=== PATIENT | female | born 1960 | race Caucasian/White ===

== ENCOUNTER 2017-04-15 15:50 | Inpatient (IN) | payer OTHER ==
[~2017-04-15] VITALS: Ht 152.4 cm; Wt 65.3 kg
[~2017-04-15 15:50] MED LIST: ADVAIR 250/501 EA INH; ALEVE220 MG PO; CIPRO500 MG PO; DOXYCYCLINE MO100 MG PO; KEFLEX500 MG PO; METICORTEN1 MG PO; ROBITUSSIN AC 110 ML PO; SINGULAIR10 MG PO; ZITHROMAX250 MG
[2017-04-15 16:38] VITALS: BP 158/86
[2017-04-15 17:17] LABS: BASO # 0.1 10*3/uL (0.0-0.1); BASO % 0.3 % (0.0-1.0); EOS # 0.4 10*3/uL (0.0-0.4); EOS % 2.3 % (1.0-4.0); HEMATOCRIT 40.3 % (37.0-47.0); HEMOGLOBIN 13.1 g/dl (12.0-16.0); LYMPH # 2.1 10*3/uL (1.3-4.4); LYMPH % 12.8 % (27.0-41.0); MEAN CELL VOLUME 99.3 fl (81.0-99.0); MEAN CORPUSCULAR HGB 32.3 pg (27.0-31.0); MEAN CORPUSCULAR HGB CONC 32.5 g/dl (33.0-37.0); MEAN PLATELET VOLUME 10.4 fl (9.6-12.3); MONO % 6.4 % (3.0-9.0); NEUT # 12.6 10*3/uL (2.3-7.9); NEUT % 77.8 % (47.0-73.0); PLATELET COUNT AUTOMATED 340 10*3/uL (130-400); RED BLOOD COUNT 4.06 10*6/uL (4.10-5.10); RED CELL DISTRI WIDTH 13.1 % (0-14.5); WHITE BLOOD COUNT 16.2 10*3/uL (4.8-10.8)
[2017-04-15 17:31] LABS: ALBUMIN 3.3 gm/dl (3.1-4.5); ALKALINE PHOSPHATASE 151 U/L (45-117); BUN 9 mg/dl (7-24); CHLORIDE 96 mmol/L (98-107); CREATININE 0.58 mg/dL (0.55-1.02); POTASSIUM 4.4 mmol/L (3.5-5.1); SGOT/AST 14 IU/L (3-35); SGPT/ALT 25 U/L (12-78); SODIUM 136 mmol/L (136-145); TOTAL PROTEIN 8.2 gm/dL (6.4-8.2)
[2017-04-15 17:38] VITALS: BP 108/58
[2017-04-15 18:30] VITALS: BP 112/57
[2017-04-15] MEDS ORDERED: PROAIR HFA8.5 GM INH (18:56)
[2017-04-15] MEDS ORDERED: Ventolin 02.5 MG/3 M INH (18:56)
[2017-04-15 20:00] VITALS: BP 111/49
[2017-04-16] VITALS: BP 125/64
[2017-04-16 07:04] LABS: BASO % 0.1 % (0.0-1.0); HEMATOCRIT 35.2 % (37.0-47.0); HEMOGLOBIN 11.3 g/dl (12.0-16.0); LYMPH # 0.9 10*3/uL (1.3-4.4); LYMPH % 7.6 % (27.0-41.0); MEAN CELL VOLUME 99.4 fl (81.0-99.0); MEAN CORPUSCULAR HGB 31.9 pg (27.0-31.0); MEAN CORPUSCULAR HGB CONC 32.1 g/dl (33.0-37.0); MEAN PLATELET VOLUME 10.5 fl (9.6-12.3); MONO # 0.2 10*3/uL (0.1-1.0); MONO % 1.6 % (3.0-9.0); NEUT # 10.3 10*3/uL (2.3-7.9); PLATELET COUNT AUTOMATED 298 10*3/uL (130-400); RED BLOOD COUNT 3.54 10*6/uL (4.10-5.10); RED CELL DISTRI WIDTH 13.1 % (0-14.5); WHITE BLOOD COUNT 11.4 10*3/uL (4.8-10.8)
[2017-04-16 07:33] LABS: ALBUMIN 2.6 gm/dl (3.1-4.5); ALKALINE PHOSPHATASE 121 U/L (45-117); BUN 10 mg/dl (7-24); CHLORIDE 101 mmol/L (98-107); CHOLESTEROL 119 mg/dL (<200); CREATININE 0.48 mg/dL (0.55-1.02); FREE T4 1.36 ng/dl (0.76-1.46); HDL CHOLESTEROL 49 mg/dl (40-60); LDL CHOLESTEROL 61 mg/dL (9-159); PHOSPHOROUS 3.1 mg/dL (2.5-4.9); POTASSIUM 4.4 mmol/L (3.5-5.1); SGOT/AST 9 IU/L (3-35); SGPT/ALT 19 U/L (12-78); SODIUM 138 mmol/L (136-145); TOTAL PROTEIN 6.9 gm/dL (6.4-8.2); TRIGLYCERIDES 43 mg/dl (<150); VLDL CHOLESTEROL 9 mg/dL (6-40)
[2017-04-16 08:00] VITALS: BP 97/52
[2017-04-16 08:37] LABS: VITAMIN D, 25-HYDROXY 96.2 ng/mL (30-100)
[2017-04-16 12:00] VITALS: BP 105/49
[2017-04-16 16:00] VITALS: BP 111/60
[2017-04-16 20:00] VITALS: BP 109/51
[2017-04-17] VITALS: BP 117/60
[2017-04-17 07:30] LABS: BASO % 0.1 % (0.0-1.0); HEMATOCRIT 37.1 % (37.0-47.0); HEMOGLOBIN 11.8 g/dl (12.0-16.0); LYMPH # 1.1 10*3/uL (1.3-4.4); MEAN CELL VOLUME 103.3 fl (81.0-99.0); MEAN CORPUSCULAR HGB 32.9 pg (27.0-31.0); MEAN CORPUSCULAR HGB CONC 31.8 g/dl (33.0-37.0); MEAN PLATELET VOLUME 10.4 fl (9.6-12.3); MONO # 0.7 10*3/uL (0.1-1.0); MONO % 4.4 % (3.0-9.0); NEUT % 87.7 % (47.0-73.0); PLATELET COUNT AUTOMATED 320 10*3/uL (130-400); RED BLOOD COUNT 3.59 10*6/uL (4.10-5.10); RED CELL DISTRI WIDTH 13.3 % (0-14.5)
[2017-04-17 07:32] LABS: BUN 15 mg/dl (7-24); CHLORIDE 102 mmol/L (98-107); CREATININE 0.52 mg/dL (0.55-1.02); POTASSIUM 4.3 mmol/L (3.5-5.1); SODIUM 140 mmol/L (136-145)
[2017-04-17 08:00] VITALS: BP 109/52
[2017-04-17 16:00] VITALS: BP 123/88
[2017-04-17 20:00] VITALS: BP 101/56
[2017-04-18] VITALS: BP 113/59
[2017-04-18 07:43] LABS: BASO % 0.1 % (0.0-1.0); HEMATOCRIT 36.2 % (37.0-47.0); HEMOGLOBIN 11.2 g/dl (12.0-16.0); LYMPH % 7.5 % (27.0-41.0); MEAN CELL VOLUME 101.7 fl (81.0-99.0); MEAN CORPUSCULAR HGB 31.5 pg (27.0-31.0); MEAN CORPUSCULAR HGB CONC 30.9 g/dl (33.0-37.0); MEAN PLATELET VOLUME 10.3 fl (9.6-12.3); MONO # 0.7 10*3/uL (0.1-1.0); MONO % 4.8 % (3.0-9.0); NEUT # 11.8 10*3/uL (2.3-7.9); NEUT % 86.8 % (47.0-73.0); PLATELET COUNT AUTOMATED 300 10*3/uL (130-400); RED BLOOD COUNT 3.56 10*6/uL (4.10-5.10); RED CELL DISTRI WIDTH 13.2 % (0-14.5); WHITE BLOOD COUNT 13.6 10*3/uL (4.8-10.8)
[2017-04-18 08:08] VITALS: BP 126/76
[2017-04-18 08:08] LABS: BUN 14 mg/dl (7-24); CHLORIDE 99 mmol/L (98-107); CREATININE 0.51 mg/dL (0.55-1.02); POTASSIUM 4.1 mmol/L (3.5-5.1); SODIUM 139 mmol/L (136-145)
[2017-04-18] MEDS ORDERED: LEVAQUIN750 M1 PO (10:11)
[2017-04-18] MEDS ORDERED: PREDNISONE10 MG PO (10:11)
== END 2017-04-18 11:05 | disposition home or self-care (01) | DRG 871 ==
LOC: ED 15:50 → EDHOLD 17:46 → 4E 17:46
PROVIDERS: Family Medicine; Nurse Practitioner Family; Student in an Organized Health Care Education/Training Program
DX: A41.9 Sepsis, unspecified organism (principal); J18.1 Lobar pneumonia, unspecified organism; E43 Unspecified severe protein-calorie malnutrition; J44.0 Chronic obstructive pulmonary disease with (acute) lower respiratory infection; E87.8 Other disorders of electrolyte and fluid balance, not elsewhere classified; D75.89 Other specified diseases of blood and blood-forming organs; Z87.891 Personal history of nicotine dependence; Z82.49 Family history of ischemic heart disease and other diseases of the circulatory system; Z88.0 Allergy status to penicillin; Z79.899 Other long term (current) drug therapy; Z68.28 Body mass index [BMI] 28.0-28.9, adult

== ENCOUNTER 2021-07-23 14:09 | Inpatient (IN) | payer OTHER ==
[~2021-07-23] VITALS: Ht 152.4 cm; Wt 45.0 kg
[~2021-07-23 14:09] MED LIST changes: +CEPHALEXIN500 M1 PO; +KENALOG 0.5% CR15 GM T; +LEVAQUIN750 M1 PO; +PREDNISONE10 MG PO; +PROAIR HFA8.5 GM INH; +SEPTDS PO; +Ventolin 02.5 MG/3 M INH
[2021-07-23 14:15] VITALS: BP 134/70
[2021-07-23 14:40] LABS: HEMATOCRIT 39.2 % (37.0-47.0); MEAN CELL VOLUME 93.6 fl (81.0-99.0); MEAN CORPUSCULAR HGB CONC 34.2 g/dl (33.0-37.0); MEAN PLATELET VOLUME 10.6 fl (9.6-12.3); PLATELET COUNT AUTOMATED 406 10*3/uL (130-400); RED BLOOD COUNT 4.19 10*6/uL (4.10-5.10); RED CELL DISTRI WIDTH 14.2 % (0-14.5); WHITE BLOOD COUNT 27.4 10*3/uL (4.8-10.8)
[2021-07-23 14:42] LABS: MANUAL DIFF REFLEX YES
[2021-07-23 14:51] LABS: ACT PARTIAL THROMBO TIME 33.9 SECONDS (20.0-32.1); INTERNATIONAL NORM RATIO 1.1 (2.0-3.5)
[2021-07-23 14:59] LABS: ALKALINE PHOSPHATASE 198 U/L (45-117); BUN 23 mg/dl (7-24); CHLORIDE 97 mmol/L (98-107); CREATININE 0.95 mg/dL (0.55-1.02); LIPASE 33 U/L (73-393); POTASSIUM 4.6 mmol/L (3.5-5.1); SGOT/AST 14 IU/L (3-35); SGPT/ALT 18 U/L (12-78); SODIUM 130 mmol/L (136-145)
[2021-07-23 15:04] LABS: ATYPICAL LYMPHS 2 % (0-0); PLATELET SUFFICIENCY HIGH (NORMAL); TOTAL CELLS COUNTED 100 #CELLS
[2021-07-23 16:32] VITALS: BP 104/62
[2021-07-23 16:33] LABS: ABG BASE EXCESS -1.3 mmol/L (-2.0-2.0); ARTERIAL BLOOD GAS PH 7.276 (7.35-7.45)
[2021-07-23 17:05] VITALS: BP 101/56
[2021-07-23 17:25] VITALS: BP 96/40
[2021-07-23] MEDS ORDERED: SPIRIVA RESPIMAT4 GM INH (18:56)
[2021-07-23] MEDS ORDERED: MONTELUKAST SOD10 MG PO (18:56)
[2021-07-23] MEDS ORDERED: ALLERGY RELIEF1 EAC3 PO (19:03)
[2021-07-23 20:00] VITALS: BP 96/50
[2021-07-23 21:46] LABS: ARTERIAL BLOOD GAS PH 7.235 (7.35-7.45)
[2021-07-24] VITALS: BP 97/57
[2021-07-24 04:00] VITALS: BP 99/66
[2021-07-24 05:38] LABS: BUN 23 mg/dl (7-24); CHLORIDE 103 mmol/L (98-107); CREATININE 0.62 mg/dL (0.55-1.02); POTASSIUM 4.3 mmol/L (3.5-5.1); SGOT/AST 12 IU/L (3-35); SGPT/ALT 15 U/L (12-78); SODIUM 133 mmol/L (136-145); TOTAL PROTEIN 6.7 gm/dL (6.4-8.2)
[2021-07-24 05:39] LABS: ALKALINE PHOSPHATASE 168 U/L (45-117)
[2021-07-24 07:39] LABS: HEMATOCRIT 35.7 % (37.0-47.0); MEAN CORPUSCULAR HGB 32.3 pg (27.0-31.0); MEAN CORPUSCULAR HGB CONC 32.8 g/dl (33.0-37.0); MEAN PLATELET VOLUME 11.2 fl (9.6-12.3); NUCLEATED RED BLOOD CELL 0.1 % (0.0-0.0); PLATELET COUNT AUTOMATED 320 10*3/uL (130-400); RED BLOOD COUNT 3.62 10*6/uL (4.10-5.10); RED CELL DISTRI WIDTH 14.8 % (0-14.5)
[2021-07-24 07:53] LABS: MANUAL DIFF REFLEX YES; MEAN CELL VOLUME 98.6 fl (81.0-99.0)
[2021-07-24 08:00] VITALS: BP 131/44
[2021-07-24 08:08] LABS: ATYPICAL LYMPHS 1 % (0-0); BURR CELLS FEW; PLATELET SUFFICIENCY NORMAL (NORMAL); TOTAL CELLS COUNTED 100 #CELLS; TOXIC GRANULATION MODERATE
[2021-07-24 08:09] LABS: POLYCHROMASIA SLIGHT; TARGET CELLS FEW
[2021-07-24 09:30] LABS: ABG BASE EXCESS -2.4 mmol/L (-2.0-2.0); ARTERIAL BLOOD GAS PH 7.26 (7.35-7.45); ARTERIAL BLOOD GAS PO2 91.1 (80-90)
[2021-07-24 12:00] VITALS: BP 109/58
[2021-07-24 16:00] VITALS: BP 120/55
[2021-07-24 20:00] VITALS: BP 103/44
[2021-07-25] VITALS: BP 106/79
[2021-07-25 05:55] LABS: BUN 21 mg/dl (7-24); CHLORIDE 105 mmol/L (98-107); CREATININE 0.63 mg/dL (0.55-1.02); POTASSIUM 4.8 mmol/L (3.5-5.1); SODIUM 136 mmol/L (136-145)
[2021-07-25 05:58] LABS: HEMATOCRIT 34.9 % (37.0-47.0); MEAN CELL VOLUME 98.6 fl (81.0-99.0); MEAN CORPUSCULAR HGB 31.4 pg (27.0-31.0); MEAN CORPUSCULAR HGB CONC 31.8 g/dl (33.0-37.0); MEAN PLATELET VOLUME 10.6 fl (9.6-12.3); PLATELET COUNT AUTOMATED 335 10*3/uL (130-400); RED BLOOD COUNT 3.54 10*6/uL (4.10-5.10); RED CELL DISTRI WIDTH 15.1 % (0-14.5); WHITE BLOOD COUNT 14.3 10*3/uL (4.8-10.8)
[2021-07-25 06:14] LABS: MANUAL DIFF REFLEX YES
[2021-07-25 08:00] VITALS: BP 116/55
[2021-07-25 08:04] LABS: PLATELET SUFFICIENCY NORMAL (NORMAL); TOTAL CELLS COUNTED 100 #CELLS
[2021-07-25 08:08] LABS: IMMUNOGLOBULIN M, QNT 51 mg/dL (26-217); RHEUMATOID FACTOR 27.5 IU/mL (<14.0)
[2021-07-25 09:17] LABS: ABG BASE EXCESS 3.5 mmol/L (-2.0-2.0); ARTERIAL BLOOD GAS PH 7.296 (7.35-7.45); ARTERIAL BLOOD GAS PO2 87.8 (80-90)
[2021-07-25 12:00] VITALS: BP 120/52
[2021-07-25 14:09] LABS: ALDOLASE 9.5 U/L (3.3-10.3); ANGIOTENSIN-CONVERTING ENZYME 33 U/L (14-82)
[2021-07-25 16:00] VITALS: BP 119/60
[2021-07-25 16:08] LABS: ATYPICAL PANCA <1:20 titer (Neg:<1:20); CYTOPLASMIC (C-ANCA) <1:20 titer (Neg:<1:20)
[2021-07-25 20:00] VITALS: BP 105/45
[2021-07-26] VITALS: BP 120/58
[2021-07-26 00:06] LABS: IGG SUBCLASS 1 467 mg/dL (248-810); IGG SUBCLASS 2 263 mg/dL (130-555); IGG SUBCLASS 3 41 mg/dL (15-102); IGG SUBCLASS 4 26 mg/dL (2-96); IMMUNOGLOBULIN G, QNT 931 mg/dL (586-1602)
[2021-07-26 06:03] LABS: BASO % 0.1 % (0.0-1.0); HEMATOCRIT 33.2 % (37.0-47.0); LYMPH # 0.9 10*3/uL (1.3-4.4); LYMPH % 8.7 % (27.0-41.0); MEAN CELL VOLUME 99.1 fl (81.0-99.0); MEAN CORPUSCULAR HGB 31.6 pg (27.0-31.0); MEAN CORPUSCULAR HGB CONC 31.9 g/dl (33.0-37.0); MONO # 0.3 10*3/uL (0.1-1.0); MONO % 2.8 % (3.0-9.0); NEUT % 87.8 % (47.0-73.0); PLATELET COUNT AUTOMATED 266 10*3/uL (130-400); RED BLOOD COUNT 3.35 10*6/uL (4.10-5.10); RED CELL DISTRI WIDTH 15.5 % (0-14.5); WHITE BLOOD COUNT 10.2 10*3/uL (4.8-10.8)
[2021-07-26 06:46] LABS: BUN 23 mg/dl (7-24); CHLORIDE 102 mmol/L (98-107); CREATININE 0.59 mg/dL (0.55-1.02); POTASSIUM 4.6 mmol/L (3.5-5.1); SODIUM 137 mmol/L (136-145)
[2021-07-26 08:00] VITALS: BP 127/67
[2021-07-26 12:00] VITALS: BP 133/74
[2021-07-26 16:00] VITALS: BP 113/52
[2021-07-26 20:00] VITALS: BP 103/53
[2021-07-27] VITALS: BP 109/74
[2021-07-27 06:21] LABS: BASO % 0.1 % (0.0-1.0); HEMATOCRIT 32.4 % (37.0-47.0); LYMPH # 0.7 10*3/uL (1.3-4.4); LYMPH % 7.2 % (27.0-41.0); MEAN CELL VOLUME 97.9 fl (81.0-99.0); MEAN CORPUSCULAR HGB 32.3 pg (27.0-31.0); MEAN PLATELET VOLUME 10.2 fl (9.6-12.3); MONO # 0.4 10*3/uL (0.1-1.0); MONO % 3.7 % (3.0-9.0); NEUT % 88.4 % (47.0-73.0); PLATELET COUNT AUTOMATED 337 10*3/uL (130-400); RED BLOOD COUNT 3.31 10*6/uL (4.10-5.10); WHITE BLOOD COUNT 10.1 10*3/uL (4.8-10.8)
[2021-07-27 06:28] LABS: BUN 20 mg/dl (7-24); CHLORIDE 100 mmol/L (98-107); CREATININE 0.51 mg/dL (0.55-1.02); POTASSIUM 4.2 mmol/L (3.5-5.1); SODIUM 138 mmol/L (136-145)
[2021-07-27 08:00] VITALS: BP 128/66
[2021-07-27 12:00] VITALS: BP 136/75
[2021-07-27 16:00] VITALS: BP 122/62
[2021-07-27 20:00] VITALS: BP 122/72
[2021-07-28] VITALS: BP 122/60
[2021-07-28 08:00] VITALS: BP 121/65
[2021-07-28 12:00] VITALS: BP 152/67
[2021-07-28 16:00] VITALS: BP 115/65
[2021-07-28 20:00] VITALS: BP 117/83
[2021-07-29] VITALS: BP 116/68
[2021-07-29 08:00] VITALS: BP 128/66
[2021-07-29] MEDS ORDERED: LEVOFLOXACIN750 M2 PO (11:38)
[2021-07-29] MEDS ORDERED: PREDNISONE10 MG PO (11:38)
[2021-07-29] MEDS ORDERED: MUCUS RELIEF600 MG PO (11:38)
[2021-07-29 12:00] VITALS: BP 131/64
== END 2021-07-29 15:54 | disposition home health service (06) | DRG 720 ==
LOC: ED 14:09 → ICCU 15:14 → EDHOLD 15:14 → ICCU 16:47 → 4E 07-26 06:21
PROVIDERS: Emergency Medicine; Hospitalist; Internal Medicine; Internal Medicine Critical Care Medicine; ADMIT Family Medicine; ATTEND Family Medicine
PROC: 5A09357 Assistance with Respiratory Ventilation, Less than 24 Consecutive Hours, Continuous Positive Airway Pressure (ICD-10-PCS; principal; 2021-07-23)
PROC: 5A09357 Assistance with Respiratory Ventilation, Less than 24 Consecutive Hours, Continuous Positive Airway Pressure (ICD-10-PCS; 2021-07-24)
PROC: 5A09357 Assistance with Respiratory Ventilation, Less than 24 Consecutive Hours, Continuous Positive Airway Pressure (ICD-10-PCS; 2021-07-25)
PROC: 5A09357 Assistance with Respiratory Ventilation, Less than 24 Consecutive Hours, Continuous Positive Airway Pressure (ICD-10-PCS; 2021-07-26)
DX: A41.9 Sepsis, unspecified organism (principal); J15.6 Pneumonia due to other Gram-negative bacteria; J96.01 Acute respiratory failure with hypoxia; E43 Unspecified severe protein-calorie malnutrition; E87.1 Hypo-osmolality and hyponatremia; Z20.822 Contact with and (suspected) exposure to COVID-19; D75.839 Thrombocytosis, unspecified; R73.9 Hyperglycemia, unspecified; G89.29 Other chronic pain; R65.20 Severe sepsis without septic shock; M54.50 Low back pain, unspecified; F17.210 Nicotine dependence, cigarettes, uncomplicated; J44.1 Chronic obstructive pulmonary disease with (acute) exacerbation; Z88.0 Allergy status to penicillin; Z82.49 Family history of ischemic heart disease and other diseases of the circulatory system; Z79.51 Long term (current) use of inhaled steroids; Z79.899 Other long term (current) drug therapy; Z68.1 Body mass index [BMI] 19.9 or less, adult

== ENCOUNTER → 2021-08-27 | Outpatient (CLI) | payer OTHER ==
[~2021-08-27] MED LIST changes: +ALLERGY RELIEF1 EAC3 PO; +LEVOFLOXACIN750 M2 PO; +MONTELUKAST SOD10 MG PO; +MUCUS RELIEF600 MG PO; +SPIRIVA RESPIMAT4 GM INH
== END | disposition home or self-care (01) ==
LOC: CT 09:58
PROVIDERS: ATTEND Internal Medicine Critical Care Medicine
DX: J43.9 Emphysema, unspecified (principal); I25.10 Atherosclerotic heart disease of native coronary artery without angina pectoris; R91.1 Solitary pulmonary nodule

== ENCOUNTER → 2022-05-26 | Outpatient (CLI) | payer OTHER ==
[~2022-05-26] MED LIST changes: +CLARITIN10 M1 PO; +FLONASE ALLERG9.9 ML NAS; +MUCINEX ER600 MG PO; +SINGULAIR10 M1 PO; +SYMB160 INH
== END | disposition home or self-care (01) ==
LOC: CT 10:00
PROVIDERS: ATTEND Internal Medicine Critical Care Medicine
DX: J43.9 Emphysema, unspecified (principal); I25.10 Atherosclerotic heart disease of native coronary artery without angina pectoris; R91.1 Solitary pulmonary nodule

== ENCOUNTER → 2022-06-09 | Day surgery (SDC) | payer OTHER ==
[~2022-06-09] VITALS: Ht 152.4 cm; Wt 52.2 kg
[2022-06-09 08:41] VITALS: BP 118/70
[2022-06-09 09:41] VITALS: BP 94/54
[2022-06-09 09:56] VITALS: BP 102/68
[2022-06-09 10:11] VITALS: BP 111/56
[2022-06-10 10:07] LABS: ACID FAST SPEC PROCESSING Concentration (.)
== END | disposition home or self-care (01) ==
LOC: SDC 06-05 08:45
PROVIDERS: ATTEND Internal Medicine Critical Care Medicine
DX: R05.9 Cough, unspecified (principal); J96.11 Chronic respiratory failure with hypoxia; J30.89 Other allergic rhinitis; J44.9 Chronic obstructive pulmonary disease, unspecified; Z88.0 Allergy status to penicillin; Z87.891 Personal history of nicotine dependence

== ENCOUNTER → 2022-11-12 | Outpatient (CLI) | payer OTHER | END | disposition home or self-care (01) | LOC: CARD 01:26 | PROVIDERS: ATTEND Internal Medicine Cardiovascular Disease | DX: I49.3 Ventricular premature depolarization (principal); I49.1 Atrial premature depolarization ==

== ENCOUNTER → 2023-01-15 | Outpatient (CLI) | payer OTHER | END | disposition home or self-care (01) | LOC: CT 10:57 | PROVIDERS: ATTEND Internal Medicine Critical Care Medicine | DX: J43.9 Emphysema, unspecified (principal); R91.8 Other nonspecific abnormal finding of lung field; I25.10 Atherosclerotic heart disease of native coronary artery without angina pectoris ==

== ENCOUNTER → 2023-04-28 | Outpatient (CLI) | payer OTHER | END | disposition home or self-care (01) | LOC: CARD 03:44 | PROVIDERS: ATTEND Internal Medicine Cardiovascular Disease | DX: I49.9 Cardiac arrhythmia, unspecified (principal); R94.31 Abnormal electrocardiogram [ECG] [EKG] ==

== ENCOUNTER → 2024-09-09 | Outpatient (CLI) | payer OTHER ==
[~2024-09-09] MED LIST changes: +DOXYCYCLINE HY100 M3 PO; +OXYGEN NAS; +TOPROL XL25 MG PO
== END ==
LOC: WOUNDCARE 00:51
PROVIDERS: ATTEND Nurse Practitioner Family
DX: S81.811A Laceration without foreign body, right lower leg, initial encounter (principal); L97.812 Non-pressure chronic ulcer of other part of right lower leg with fat layer exposed; I73.9 Peripheral vascular disease, unspecified; J44.9 Chronic obstructive pulmonary disease, unspecified; G89.29 Other chronic pain; F17.210 Nicotine dependence, cigarettes, uncomplicated; Z98.890 Other specified postprocedural states; Z79.899 Other long term (current) drug therapy; X58.XXXA Exposure to other specified factors, initial encounter; Y93.89 Activity, other specified; Y92.89 Other specified places as the place of occurrence of the external cause; Y99.8 Other external cause status

== ENCOUNTER → 2024-09-15 | Outpatient (CLI) | payer OTHER | END | disposition home or self-care (01) | LOC: WOUNDCARE 03:31 | PROVIDERS: ATTEND Nurse Practitioner Family | DX: S81.811D Laceration without foreign body, right lower leg, subsequent encounter (principal); L97.812 Non-pressure chronic ulcer of other part of right lower leg with fat layer exposed; I73.9 Peripheral vascular disease, unspecified; J44.9 Chronic obstructive pulmonary disease, unspecified; F17.210 Nicotine dependence, cigarettes, uncomplicated; Z98.890 Other specified postprocedural states; Z79.899 Other long term (current) drug therapy; X58.XXXD Exposure to other specified factors, subsequent encounter ==

== ENCOUNTER → 2024-09-23 | Outpatient (CLI) | payer OTHER | LOC: WOUNDCARE 01:57 | PROVIDERS: ATTEND Nurse Practitioner Family | DX: S81.811D Laceration without foreign body, right lower leg, subsequent encounter (principal); L97.812 Non-pressure chronic ulcer of other part of right lower leg with fat layer exposed; I73.9 Peripheral vascular disease, unspecified; J44.9 Chronic obstructive pulmonary disease, unspecified; G89.29 Other chronic pain; F17.210 Nicotine dependence, cigarettes, uncomplicated; Z87.891 Personal history of nicotine dependence; Z98.890 Other specified postprocedural states; Z79.899 Other long term (current) drug therapy; X58.XXXD Exposure to other specified factors, subsequent encounter ==

== ENCOUNTER → 2024-09-29 | Outpatient (CLI) | payer OTHER | END | disposition home or self-care (01) | LOC: WOUNDCARE 02:36 | PROVIDERS: ATTEND Nurse Practitioner Family | DX: S81.811D Laceration without foreign body, right lower leg, subsequent encounter (principal); L97.812 Non-pressure chronic ulcer of other part of right lower leg with fat layer exposed; I73.9 Peripheral vascular disease, unspecified; J44.9 Chronic obstructive pulmonary disease, unspecified; G89.29 Other chronic pain; F17.210 Nicotine dependence, cigarettes, uncomplicated; Z79.899 Other long term (current) drug therapy; X58.XXXD Exposure to other specified factors, subsequent encounter ==